=== PATIENT | male | born 1985 | race Caucasian/White ===

== ENCOUNTER 2019-06-26 08:46 | Emergency (ER) | payer SELFPAY ==
[2019-06-26 08:47] VITALS: BP 151/97; PULSE 90; RESP 18; TEMP 36.6; O2SAT 100; BMI 19.2
--- NOTE | 2019-06-26 08:56 | CT_ITS ---
STUDY: CT ABDOMEN AND PELVIS WITH CONTRAST REASON FOR EXAM: Male, 33 years old. LT MID ABD PAIN, DIARRHEA AND VOMITING, PREV HERNIA REPAIR WITH MESH RADIATION DOSAGE (If Supplied By Facility): CTDIvol = ( 9.94 ) mGy, DLP = ( 351.71 ) mGycm TECHNIQUE: Transaxial images were obtained from the dome of the diaphragm to the symphysis pubis without oral contrast. IV 100mL Isovue-300 was administered. Sagittal and coronal images were reconstructed. Individualized dose optimization techniques were used for this CT. COMPARISON: None. FINDINGS: The visualized lung bases are unremarkable. The visualized portions of the heart are within normal limits. Normal liver. Normal gallbladder and extrahepatic biliary system. Normal spleen. Normal pancreas. Normal bilateral adrenal glands. Normal right kidney. Normal left kidney. Normal visualized stomach. Normal small intestine. Normal colon. The appendix is visualized and appears normal. Normal abdominal aorta. Normal inferior vena cava. Normal retroperitoneum. Normal urinary bladder. Normal abdominal wall. Normal osseous structures. CT/Abdomen/Pelvis W IV Cont ONLY IMPRESSION: Normal enhanced CT of the abdomen and pelvis. Electronically Signed: Ruben Nunes, at 10:17 EDT , Service support ,
--- NOTE | 2019-06-26 09:01 | ED.VIS.GEN ---
History of Present Illness Chief Complaint: Nausea/Vomiting Informant: Patient Onset: Days Context: Gradual Onset Timing: Continuous Current Severity: Moderate Maximum Severity: Moderate Narrative: The patient is a 33-year-old male only medical history significant for hypertension and prior hernia repair in 2011 that presents to the emergency department nausea, and diarrhea. The patient states his symptoms began about 3 days ago. He states he has been unable to keep any fluids down since yesterday. He states anything that he drinks he will either vomit, or have immediate diarrhea. He states initially, he had some red blood in his diarrhea but that is since resolved. He does not think he is had fever but he does admit to some chills. He has no history of Crohn's disease or ulcerative colitis. He does travel for work, but cannot recall any specific sick contacts. Prior similar symptoms: No Recent Illness/Hospitalization: No Past Medical History - Allergies and Home Meds Allergies/Adverse Reactions: Allergies amoxicillin Allergy (Verified 06/26/19 08:50) Rash Primary Care Physician: Care Physician,No Primary [Primary Care Provider] - Prior records reviewed: Yes Past Medical History: - - Hypertension Surgical History: herniorrhaphy Lives: With Family Alcohol: None Drugs: None Review of Systems General: Reports: Chills. Denies: Fever, Sweats Eyes: Denies: Visual changes - bilaterally, Diplopia ENT: Denies: Rhinorrhea, Sore throat Cardiovascular: Denies: Chest pain, Palpitations Respiratory: Denies: Dyspnea, Cough, Dyspnea on exertion Gastrointestinal: Reports: Abdominal pain, Nausea, Vomiting, Diarrhea. Denies: Melena, Hematochezia Genitourinary: Denies: Dysuria, Hematuria, Frequency Musculoskeletal: Denies: Back pain, Extremity Pain Skin: Denies: Rash, Wounds Neurological: Denies: Headache, Weakness, Numbness Physical Exam Vital Signs/Narrative: Vital Signs Temp Pulse Resp BP Pulse Ox 06/26/19 08:47 98 F 90 18 151/97 H 100 Inital Vital Signs reviewed: Yes General: Well nourished, Well developed, No Acute Distress Head: Normocephalic, Atraumatic Eyes: Perrl, EOMI ENT: Moist mucous membranes, No rhinorrhea Neck: Supple, Nontender Cardiovascular: Regular rate, Regular rhythm, No murmurs Respiratory: No distress, CTA bilaterally, Chest nontender Abdomen: Soft, Nondistended, Normal bowel sounds, Tender. Negative for: Guarding, Rebound tenderness Back: Nontender, Normal Inspection Extremities: Nontender, No edema Skin: Normal color, No rash Neurological: Alert, Oriented x3, Cranial nerves II-XII grossly intact, Normal Strength, Normal Sensation Psychological: Normal affect, Normal Mood Diagnostic/Tx/Re-eval Clinical Impression(s) from Imaging Studies Abdomen/Pelvis CT 06/26/19 08:56 IMPRESSION: Normal enhanced CT of the abdomen and pelvis. Electronically Signed: Ruben Nunes, at 10:17 EDT , Service support , Abnormal Lab Results 06/26/19 06/26/19 09:15 09:15 WBC 10.1 RBC 5.03 Hgb 16.0 Hct 47.0 MCV 93.4 MCH 31.8 MCHC 34.0 RDW Std Deviation 42.0 RDW Coeff of Roderick 12.2 Plt Count 215 MPV 10.3 Immature Gran % (Auto) 0.300 Neut % (Auto) 79.5 H Lymph % (Auto) 13.4 L [place] % (Auto) 6.0 Eos % (Auto) 0.5 Baso % (Auto) 0.3 Absolute Neuts (auto) 8.0 H Absolute Lymphs (auto) 1.35 Nucleated RBC % 0 Sodium 139 Potassium 3.7 Chloride 106 Carbon Dioxide 27.0 Anion Gap 6 BUN 13 Creatinine 1.08 Estim Creat Clear Calc 94.50 Est GFR (MDRD) Af Amer 102 Est GFR (MDRD) Non-Af 84 BUN/Creatinine Ratio 12.0 Glucose 114 H Calcium 9.2 Total Bilirubin 0.50 AST 15 ALT 23 Alkaline Phosphatase 61 Total Protein 7.9 Albumin 4.3 Globulin 3.6 Albumin/Globulin Ratio 1.2 - Medical Decision Making Patient presents with abdominal cramping, nausea, vomiting, diarrhea. He was tender in his left upper and lower quadrant. Screening labs obtained were unremarkable. Noncontrast CT shows no evidence of colitis, obstruction, or other dangerous process. Patient is resting comfortably with improvement of his nausea. At this point, I do feel symptoms are likely viral. He has a repeat nontender abdomen. He will be treated symptomatically with Bentyl and Zofran. He was counseled on concerning symptoms and reasons to return. He will be discharged home. Impression 1. Gastroenteritis ED Disposition - Plan for ED Patient: Instructions: ED Food Poison Or Gastroenteritis Prescriptions: Dicyclomine HCl [Bentyl] 20 mg PO TIDAC #20 cap Prescription Printed Ondansetron [Zofran Odt] 4 mg PO Q8H PRN PRN #10 tab PRN Reason: Nausea Prescription Printed Referrals: Care Physician,No Primary [Primary Care Provider] -
[2019-06-26] MEDS: 0.9% Normal Saline 1,000 ML 1000 ML IV (09:19)
[2019-06-26] MEDS: Ondansetron 4 MG/2 ML Vial IV (09:20)
[2019-06-26 09:25] LABS: Absolute Lymphocyte Count 1.35 X10^3/uL (0.83-4.51); Basophil# 0.03 X10^3/uL; Basophil% 0.3 % (0-1); Eosinophil# 0.05 X10^3/uL; Eosinophils% 0.5 % (0-5); Lymphocyte # 1.35 X10^3/ul (4.0); Lymphocyte % 13.4 % (19-41); Mean Corpuscular Hgb 31.8 pg (27.0-32.0); Mean Corpuscular Volume 93.4 fL (80-94); Mean Platelet Vol. 10.3 fl (6.2-12.0); Monocyte# 0.61 X10^3/uL; NRBC Flagged by Analyzer 0 % (0-5); Neutrophil # 8.02 X10^3/uL (2.7-7.7); Neutrophil % 79.5 % (47-70); Platelet Count 215 K/mm3 (150-450); RBC Distribution Width CV 12.2 % (11.6-14.6); Red Blood Count 5.03 M/mm3 (4.6-6.2); White Blood Count 10.1 K/mm3 (4.4-11.0)
[2019-06-26 09:39] LABS: ALB/GLOB Ratio 1.2 RATIO (0.9-2.4); AST(SGOT) 15 U/L (15-37); Alanine Aminotransfer ALT/SGPT 23 U/L (16-61); Albumin, Serum 4.3 g/dL (3.2-5.0); Alkaline Phosphatase 61 U/L (45-117); Anion Gap 6 (5-15); BUN 13 mg/dL (7-18); Calcium,Total 9.2 mg/dL (8.5-10.1); Chloride 106 mmol/L (98-107); Creatinine, Serum 1.08 mg/dL (0.70-1.30); EST Glomerular Filtration Rate 84 mL/min (>60); Est Glom Filt Rate - Afr Amer 102 mL/min (>60); Globulin 3.6 g/dL (2.2-4.2); Glucose 114 mg/dL (74-106); Potassium 3.7 mmol/L (3.5-5.1); Protein, Total 7.9 g/dL (6.4-8.2); Sodium Level 139 mmol/L (136-145)
[2019-06-26 10:22] VITALS: BP 129/83; PULSE 74; RESP 17; O2SAT 97
[2019-06-26 10:25] VITALS: BP 129/83; PULSE 74; RESP 17; TEMP 36.8; O2SAT 97
[2019-06-26 10:33] VITALS: BP 138/77; PULSE 62; RESP 15; O2SAT 99
== END 2019-06-26 10:33 | disposition home or self-care (01) ==
PROVIDERS: Emergency Provider Emergency Medicine
DX: K52.9 Noninfective gastroenteritis and colitis, unspecified (principal); I10 Essential (primary) hypertension; Z88.0 Allergy status to penicillin
CPT/HCPCS: 74177; 80053; 85025; 99282; Q9967; J2405

== ENCOUNTER 2020-11-19 22:37 | Emergency (ER) | payer SELFPAY ==
[2020-11-19 22:38] VITALS: BP 124/100; PULSE 76; RESP 16; TEMP 36.6; O2SAT 100; BMI 20.7
--- NOTE | 2020-11-19 23:43 | ED.VIS.GI ---
HPI HPI - GI History of Present Illness Chief Complaint: Abd Pain Detail of Chief Complaint: Abdominal pain and concern for hernia. Informant: patient Narrative Narrative: Patient presents to the emergency department with abdominal pain. Patient states that he had a hernia repair in 2011 on the right side. Patient states that he has had swelling to his right testicle for about 2 months but worse over the last couple of days. Patient also has an umbilical swelling that he states he pushed back in has been causing him some pain. Patient has had nausea and vomited 3 times today. Patient also describe some dark stools today. He denies fever. He denies bright red blood in his stool. Prior similar symptoms: No PFSH PFSH Medical History no medical history Home Medications ondansetron 4 mg PO Q8H PRN PRN #10 tab 11/20/20 [Rx Last Taken Unknown] Allergy/AdvReac Type Severity Reaction Status Date / Time amoxicillin Allergy Rash Verified 11/19/20 22:37 Social History Smoking Status: Never smoker ROS ROS ED Constitutional Constitutional ED: Reports systems reviewed and no addt'l complaints, except as documented; Denies body ache(s), change in weight or chills Eyes Eyes: Denies acute decrease in peripheral vision, change in vision, double vision or loss of vision ENT ENT ED: Reports none; Denies ear pain, lip swelling, loss taste/smell, neck pain, otalgia or sore throat Cardiovascular Cardiovascular: Reports none; Denies abdominal pain, chest pain with activity, leg edema, lightheadedness, palpitations, rapid heart rate or syncope Respiratory/Chest Respiratory/Chest: Reports none; Denies change in mental status, dry cough, dyspnea, hemoptysis, shortness of breath at rest or shortness of breath with exertion Gastrointestinal Gastrointestinal: Reports none, abdominal pain, nausea and vomiting; Denies change in stool character, diarrhea, hematemesis, hematochezia, melena or rectal bleeding Genitourinary Genitourinary ED: Reports none; Denies abdominal discomfort, anuria, dysuria, genital pain or polyuria Musculoskeletal Musculoskeletal: Reports none; Denies arthralgias, back pain, difficulty walking, extremity pain, muscle weakness or myalgias Integumentary Reports none; Denies abscess or rash Neurologic Neurologic: Reports none; Denies abnormal gait, confusion, focal weakness, frequent falls, headache(s), loss of vision, numbness, paresthesias, radicular pain, vertigo or weakness Psychiatric Psychiatric: Reports systems reviewed and no addt'l complaints, except as documented and none; Denies behavioral changes, confusion, difficulty concentrating, hallucinations, suicidal ideation, tactile hallucinations or visual hallucinations Endocrine Endocrinology: Denies none, cold intolerance, excessive sweating, fatigue or heat intolerance Hematologic/Lymphatic Hematologic/Lymphatic: Reports none; Denies anemia, easy bleeding or easy bruising Allergic/Immunologic Allergic/Immunologic ED: Denies as per HPI, none, lip swelling, mouth swelling, throat swelling, tongue swelling or hives EXAM Physical Exam Const Vital Signs: 11/19/20 22:38 Temperature 97.9 F Temperature Source Temporal Pulse Rate 76 Respiratory Rate 16 Blood Pressure 124/100 H Blood Pressure Mean 108 Pulse Ox 100 Oxygen Delivery Method Room Air Positive well nourished and well developed General Appearance ED: well developed and NAD HEENT Reports TM's clear and moist mucous membranes normocephalic and atraumatic; Negative for trauma or tenderness Tympanic Membrane ED: Yes TM's clear Eyes PERRL and EOMs intact bilaterally General Eye ED: Negative for pale conjunctiva or scleral icterus Neck no lymphadenopathy, supple and no JVD General: Negative for tenderness Chest Wall inspection of chest normal and palpation of chest normal Chest: Negative for tenderness Resp normal respiratory effort and clear to auscultation bilaterally Effort and Inspection: Negative for respiratory distress or pain with movement Auscultation: Negative for rhonchi, wheezes or diminished lung sounds Cardio regular rate, regular rhythm, S1 normal heart sound, S2 normal heart sound and no murmurs Peripheral Pulses: pulses 2+ throughout GI normal to inspection, nondistended, normoactive bowel sounds, soft to palpation and non-distended GI Narrative: Patient has some tenderness periumbilically with no obvious hernia at this time noted. There is no rebound, rigidity, or peritoneal signs. Narrative: Patient is a circumcised male. Right side of the scrotum is significantly enlarged with suspected hernia within the scrotum. Difficult to palpate the testicle itself. Back/Spine no CVA tenderness and no thoracic nor lumbar tenderness Extremity normal to inspection General Extremety ED: Negative for edema General Extremity: Negative for edema Neuro oriented x3, CN's II-XII intact bilaterally, no sensory deficits noted and gait normal Sensorium / Orientation: awake, alert, oriented to person, oriented to place and oriented to time Motor Exam: strength 5/5 throughout and strength abnormal Psych mental status grossly normal Skin no rashes or lesions noted and no wounds MDM MDM MDM Narrative Medical decision making narrative: Results discussed with patient. On CT he is noted to have a large right-sided hydrocele. No significant hernias noted and no obstructive bowel pattern noted. Patient will be referred to urology for follow-up. Lab Data Attestation: I reviewed the patient's lab results. Labs: Laboratory Results - last 24 hr 11/19/20 11/19/20 11/19/20 23:55 23:55 23:55 WBC 6.4 RBC 4.86 Hgb 15.6 Hct 46.4 MCV 95.5 H MCH 32.1 H MCHC 33.6 RDW Std Deviation 43.8 RDW Coeff of Roderick 12.4 Plt Count 240 MPV 10.2 Immature Gran % (Auto) 0.300 Neut % (Auto) 48.3 Lymph % (Auto) 42.1 H [place] % (Auto) 7.2 Eos % (Auto) 1.6 Baso % (Auto) 0.5 Absolute Neuts (auto) 3.1 Absolute Lymphs (auto) 2.71 Nucleated RBC % 0 Sodium 141 Potassium 4.2 Chloride 106 Carbon Dioxide 29.0 Anion Gap 6 BUN 13 Creatinine 0.97 Estim Creat Clear Calc 110.84 Est GFR (MDRD) Af Amer 113 Est GFR (MDRD) Non-Af 94 BUN/Creatinine Ratio 13.3 Glucose 93 Lactic Acid 1.1 Calcium 8.9 Radiography Diagnostic Testing: Clinical Impression(s) from Imaging Studies Abdomen/Pelvis CT 11/20/20 23:43 IMPRESSION: Very large right-sided and trace left-sided hydronephrosis. No other acute finding in the abdomen and pelvis. Electronically Signed: Osmany Ashby MD at 1:56 EDT Tel , Service support , Discharge Plan Triage Chief Complaint: Abd Pain ED Provider: Zeny Judd Dx/Rx/DC Orders Clinical Impression: Acute hydrocele Instructions: ED Hydrocele, Type Not Specified, ED Abdominal Pain Unkn Cause Male... Prescriptions: New ondansetron [ondansetron] 4 MG tablet 4 mg PO Q8H PRN PRN (Reason: Nausea) Qty: 10 RF: 0 Primary Care Provider: Care Physician,No Primary Referrals: Roque Masters MD [STAFF PHYSICIAN] - 3-5 Days Care Physician,No Primary [Primary Care Provider] - Disposition Disposition: Home, Self Care
[2020-11-20] MEDS: Ondansetron 4 MG/2 ML Vial IV (00:03)
[2020-11-20] MEDS: 0.9% Normal Saline 1,000 ML 125 ML IV (00:03)
[2020-11-20 00:04] LABS: Absolute Lymphocyte Count 2.71 X10^3/uL (0.83-4.51); Absolute Neutrophil Count 3.1 X10^3/uL (2.0-7.7); Basophil# 0.03 X10^3/uL; Basophil% 0.5 % (0-1); Eosinophils% 1.6 % (0-5); Hematocrit 46.4 % (40-54); Hemoglobin 15.6 g/dL (13.0-16.5); Lymphocyte # 2.71 X10^3/ul (0.83-4.51); Lymphocyte % 42.1 % (19-41); Mean Corp Hgb Conc 33.6 g/dL (32-36); Mean Corpuscular Hgb 32.1 pg (27.0-32.0); Mean Corpuscular Volume 95.5 fL (80-94); Mean Platelet Vol. 10.2 fl (6.2-12.0); Monocyte# 0.46 X10^3/uL; Monocyte% 7.2 % (0-10); NRBC Flagged by Analyzer 0 % (0-5); Neutrophil # 3.11 X10^3/uL (2.7-7.7); Neutrophil % 48.3 % (47-70); Platelet Count 240 K/mm3 (150-450); RBC Distribution Width CV 12.4 % (11.6-14.6); RBC Distribution Width SD 43.8 fl (35.1-43.9); Red Blood Count 4.86 M/mm3 (4.6-6.2); White Blood Count 6.4 K/mm3 (4.4-11.0)
[2020-11-20 00:27] LABS: Anion Gap 6 (5-15); BUN 13 mg/dL (7-18); BUN/Creat Ratio 13.3 RATIO (10-20); Calcium,Total 8.9 mg/dL (8.5-10.1); Chloride 106 mmol/L (98-107); Creatinine, Serum 0.97 mg/dL (0.70-1.30); EST Glomerular Filtration Rate 94 mL/min (>60); Est Glom Filt Rate - Afr Amer 113 mL/min (>60); Estimated Creatinine Clearance 110.84 ml/min; Glucose 93 mg/dL (74-106); Potassium 4.2 mmol/L (3.5-5.1); Sodium Level 141 mmol/L (136-145)
[2020-11-20 00:32] LABS: Lactic Acid 1.1 mmol/L (0.4-1.9)
[2020-11-20 02:09] VITALS: BP 132/88; PULSE 89; RESP 18; O2SAT 100
--- NOTE | 2020-11-20 23:43 | CT_ITS ---
STUDY: CT ABDOMEN AND PELVIS WITH CONTRAST REASON FOR EXAM: Male, 35 years old. abdominal pain -- IV PO Contrast RADIATION DOSAGE (If Supplied By Facility): CTDIvol = ( 8.22 ) mGy, DLP = ( 536.30 ) mGycm TECHNIQUE: Transaxial images were obtained from the dome of the diaphragm to the symphysis pubis without oral contrast. Oral and amp; IV Gastrografin and amp; 80mL Isovue-370 was administered. Sagittal and coronal images were reconstructed. Individualized dose optimization techniques were used for this CT. COMPARISON: 06/26/2019 FINDINGS: The study is somewhat degraded by the patient''s motion. Minimal bibasilar dependent atelectasis. Grossly unremarkable liver, spleen, pancreas, adrenals, and bilateral kidneys. No definite cholelithiasis. No CT evidence of acute appendicitis. Bowel loops nonobstructed. No free air or free fluid. No adenopathy. Intact abdominal aorta and its major branches. Sections through the pelvis demonstrate a normal sized prostate. Urinary bladder grossly unremarkable. Very large right-sided and trace left-sided hydroceles. Minimal dextroscoliosis of the lumbar spine. CT/Abdomen/Pelvis WITH Contrast IMPRESSION: Very large right-sided and trace left-sided hydronephrosis. No other acute finding in the abdomen and pelvis. Electronically Signed: Osmany Ashby MD at 1:56 EDT Tel , Service support ,
== END 2020-11-20 02:10 | disposition home or self-care (01) ==
PROVIDERS: Emergency Provider Emergency Medicine
DX: N43.3 Hydrocele, unspecified (principal); N13.30 Unspecified hydronephrosis
CPT/HCPCS: 74177; 80048; 83605; 85025; 96361; 96374; 99283; J7030; Q9967; A4216; J2405

== ENCOUNTER → 2021-01-23 13:28 | Outpatient (CLI) | payer BC, SELFPAY | PROVIDERS: Referring Provider Urology; Visit Provider Urology | DX: Z03.818 Encounter for observation for suspected exposure to other biological agents ruled out (principal) | CPT/HCPCS: 87635; C9803; U0005; U0003 ==

== ENCOUNTER 2024-02-21 16:48 | Emergency (ER) | payer OTHER, SELFPAY ==
[2024-02-21 16:50] VITALS: BP 145/113; PULSE 91; RESP 18; TEMP 36.2; O2SAT 100
[2024-02-21 17:29] LABS: Absolute Neutrophil Count 3.7 X10^3/uL (2.0-7.7); Basophil# 0.03 X10^3/uL; Basophil% 0.4 % (0-1); Eosinophil# 0.18 X10^3/uL; Eosinophils% 2.7 % (0-5); Hematocrit 47.1 % (40-54); Hemoglobin 16.1 g/dL (13.0-16.5); Mean Corp Hgb Conc 34.2 g/dL (32-36); Mean Corpuscular Hgb 32.4 pg (27.0-32.0); Mean Corpuscular Volume 94.8 fL (80-94); Mean Platelet Vol. 10.2 fl (6.2-12.0); Monocyte# 0.53 X10^3/uL; Monocyte% 7.9 % (0-10); NRBC Flagged by Analyzer 0 % (0-5); Neutrophil # 3.71 X10^3/uL (2.7-7.7); Neutrophil % 55.7 % (47-70); Platelet Count 269 K/mm3 (150-450); RBC Distribution Width CV 12.7 % (11.6-14.6); RBC Distribution Width SD 43.8 fl (35.1-43.9); Red Blood Count 4.97 M/mm3 (4.6-6.2); White Blood Count 6.7 K/mm3 (4.4-11.0)
[2024-02-21 17:38] LABS: Anion Gap 5 (5-15); BUN 12 mg/dL (7-18); BUN/Creat Ratio 11.9 RATIO (10-20); Calcium,Total 9.7 mg/dL (8.5-10.1); Chloride 109 mmol/L (98-107); Creatinine, Serum 1.01 mg/dL (0.70-1.30); EST Glomerular Filtration Rate 88 mL/min (>60); Est Glom Filt Rate - Afr Amer 107 mL/min (>60); Estimated Creatinine Clearance 100.22 ml/min; Glucose 125 mg/dL (74-106); Potassium 3.6 mmol/L (3.5-5.1); Sodium Level 140 mmol/L (136-145)
[2024-02-21 17:43] LABS: Partial Thromboplast Time 28.2 Seconds (24.1-36.2); Prothrombin Time (Protime)PT. 13.1 SECONDS (11.7-14.9)
--- NOTE | 2024-02-21 18:32 | EX.ED.VIS.HA ---
HPI History of Present Illness Chief Complaint: Headache Informant: patient Onset/Context/Timing Onset: Days (5) Context: Sudden Timing: Continuous Quality -Headache: Positive for Sharp Location: Left head Worsened by: Nothing Relieved by: Nothing Associated Symptoms/Injury Associated Symptoms: Positive for Nausea, Vomiting, Numbness, Blurred Vision and Photophobia; Negative for Fever, Sore Throat or Sinus Pressure Narrative Narrative: Patient presents with headache that has been getting worse over the past 5 days. Patient states it is constant. Patient states it is sharp. Patient states it is over the left side of his head. Patient admits to some nausea and vomiting. His patient admits to some blurry vision. Patient admits to some decreased vision of his left eye. Patient denies any weakness. Patient states he had a stroke several months ago and has persistent left-sided weakness. Patient denies any new weakness. [facility] Medical History (Updated 02/21/24 @ 21:[address] Herve Marshall DO) Stroke Home Medications ?Medication ?Instructions ?Recorded ?Last Taken ?Type ondansetron 4 mg disintegrating 4 mg PO Q8H PRN PRN Nausea #10 tabs 11/20/20 Unknown Rx tablet Allergy/AdvReac Type Severity Reaction Status Date / Time amoxicillin Allergy Rash Verified 02/21/24 16:50 Surgical History (Updated 02/21/24 @ 21:[address] Herve Marshall DO) History of hydrocelectomy Hx of inguinal herniorrhaphy History of tonsillectomy and adenoidectomy Social History (Updated 02/21/24 @ 21:[address] Herve Marshall DO) Smoking Status: Current some day smoker tobacco type: smokeless tobacco substance use type: marijuana ROS ROS ED Constitutional Constitutional ED: Denies chills or fever(s) Eyes Eyes: Reports blurry vision; Denies change in vision ENT ENT ED: Denies rhinorrhea or sore throat Cardiovascular Cardiovascular: Denies chest pain or palpitations Respiratory/Chest Respiratory/Chest: Denies cough or dyspnea Gastrointestinal Gastrointestinal: Reports nausea and vomiting Genitourinary Genitourinary ED: Denies dysuria or hematuria Musculoskeletal Musculoskeletal: Reports neck pain; Denies back pain Integumentary Denies abscess or rash Neurologic Neurologic: Reports headache(s) Allergic/Immunologic Allergic/Immunologic ED: Denies mouth swelling or urticaria EXAM Physical Exam Const Vital Signs: 02/21/24 16:50 Temperature 97.2 F L Temperature Source Temporal Pulse Rate 91 Respiratory Rate 18 Blood Pressure 145/113 H Blood Pressure Mean 123 Pulse Ox 100 Oxygen Delivery Method Room Air Positive well nourished and well developed General Appearance ED: well developed and NAD HEENT Reports normocephalic and moist mucous membranes atraumatic Neck supple, no meningeal signs and no JVD Resp normal respiratory effort and clear to auscultation bilaterally Cardio regular rate and regular rhythm GI non-tender and non-distended Palpation: soft Extremity General Extremety ED: Negative for edema or tenderness General Extremity: Negative for edema Neuro oriented x3 Neuro Narrative: Strength is 4/5 in the left upper and lower extremity. There is also some mild drooping of his left eyelid. Patient states this has been present since his stroke 7 months ago. There are no sensory deficits noted. Kamar Coma Scale: document GCS findings Spontaneous Obeys Commands Oriented 15 Sensorium / Orientation: awake and alert Speech: speech normal Psych mental status grossly normal MDM MDM MDM Narrative Medical decision making narrative: Differential diagnosis includes intracranial bleeding, stroke, migraine headache, tension headache, and neuralgia. CT scan of the brain will be obtained to assess for intracranial bleeding and stroke. CBC will be obtained to assess for leukocytosis and anemia. Basic metabolic profile will be obtained to assess for electrolyte abnormality and renal function. PT with INR and PTT will be obtained to assess for coagulopathy. Lab Data Attestation: I reviewed the patient's lab results. Lab results narrative: CBC was reviewed and was within normal limits. Basic metabolic profile was reviewed and was within normal limits. PT with INR and PTT were reviewed and were within normal limits. Labs: Laboratory Results - last 24 hr 02/21/24 17:18 WBC 6.7 RBC 4.97 Hgb 16.1 Hct 47.1 MCV 94.8 H MCH 32.4 H MCHC 34.2 RDW Std Deviation 43.8 RDW Coeff of Roderick 12.7 Plt Count 269 MPV 10.2 Immature Gran % (Auto) 0.300 Neut % (Auto) 55.7 Lymph % (Auto) 33.0 [place] % (Auto) 7.9 Eos % (Auto) 2.7 Baso % (Auto) 0.4 Absolute Neuts (auto) 3.7 Absolute Lymphs (auto) 2.20 Nucleated RBC % 0 PT 13.1 INR 1.0 APTT 28.2 Sodium 140 Potassium 3.6 Chloride 109 H Carbon Dioxide 26.0 Anion Gap 5 BUN 12 Creatinine 1.01 Estim Creat Clear Calc 100.22 Est GFR (MDRD) Af Amer 107 Est GFR (MDRD) Non-Af 88 BUN/Creatinine Ratio 11.9 Glucose 125 H Calcium 9.7 Radiography Diagnostic Testing: CT scan of the brain was obtained. There is no acute intracranial abnormality. This was interpreted by the radiologist and was also independently reviewed by myself. Treatment and Re-Evaluation Narrative: Patient was given IV fluids, Reglan, and Benadryl. Patient had minimal relief with this. Patient was given a dose of Toradol, dexamethasone, and Imitrex. Patient was feeling better after this. Patient preferred to go home. Patient was instructed to drink plenty of fluids. Patient was instructed to follow-up with his primary care physician in 5 to 7 days. Patient understood and was agreeable with the plan. All questions were answered. Discharge Plan Triage Chief Complaint: Headache Other Complaint: Neuro S/Sx ED Provider: Herve Marshall Dx/Rx/DC Orders Clinical Impression: Headache Instructions: ED Headache Unspecified Prescriptions: No Action ondansetron [ondansetron] 4 MG tablet 4 mg PO Q8H PRN PRN (Reason: Nausea) Qty: 10 0RF Stand Alone Forms: ED Work / School Excuse Primary Care Provider: Everton Lei Referrals: Everton Lei PA [Primary Care Provider] - Keep Karissa appointment Print Language: [place]an Disposition Disposition: Home, Self Care
[2024-02-21] MEDS: 0.9% Normal Saline (1000mL) 1,000 ML 999 ML IV (18:41)
[2024-02-21] MEDS: Metoclopramide 10 MG/2 ML Vial IV (18:41)
[2024-02-21] MEDS: DiphenhydrAMINE 50 MG/ML Syringe 25 MG IV (18:41)
[2024-02-21 18:46] VITALS: BP 143/98; PULSE 56; RESP 15; O2SAT 99
--- NOTE | 2024-02-21 18:49 | CT_ITS ---
STUDY: CT BRAIN WITHOUT CONTRAST REASON FOR EXAM: Male, 38 years old. Pain RADIATION DOSAGE (If Supplied By Facility): CTDIvol = ( 44.99 ) mGy, DLP = ( 880.47 ) mGycm TECHNIQUE: Transaxial CT imaging of the brain was performed without administration of intravenous contrast material. Individualized dose optimization techniques were used for this CT. COMPARISON: No relevant priors. FINDINGS: Normal soft tissue structures. Normal calvarium. Normal size ventricles and extra-axial spaces for the patient''s age. Normal white matter tracts of the cerebral hemispheres. Normal basal ganglia and thalami. Normal brainstem. Normal cerebellum. There is no intracranial hemorrhage. There are no findings of an acute ischemic infarction. Mild polypoid mucosal thickening of the maxillary sinuses laterally. CT/Brain/Head without Contrast IMPRESSION: Normal unenhanced CT scan of the brain. 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
[2024-02-21 20:00] VITALS: BP 122/82; PULSE 55; RESP 14; O2SAT 99
[2024-02-21] MEDS: dexAMETHasone 4 MG/ML Vial IV (20:30)
[2024-02-21] MEDS: Ketorolac 30 MG/ML Syringe IV (20:30)
[2024-02-21] MEDS: SUMAtriptan 6 MG/0.5 ML Vial SC (20:30)
[2024-02-21 21:56] VITALS: BP 112/69; PULSE 51; RESP 18; O2SAT 98
[2024-02-21 21:57] VITALS: BP 112/69; PULSE 51; RESP 18; TEMP 36.7; O2SAT 98
== END 2024-02-21 22:05 | disposition home or self-care (01) ==
PROVIDERS: Emergency Provider Emergency Medicine; PCP Physician Assistant; Visit Provider Emergency Medicine
DX: R51.9 Headache, unspecified (principal); I69.354 Hemiplegia and hemiparesis following cerebral infarction affecting left non-dominant side; R11.2 Nausea with vomiting, unspecified; F17.220 Nicotine dependence, chewing tobacco, uncomplicated; I69.392 Facial weakness following cerebral infarction
CPT/HCPCS: 70450; 80048; 85025; 85610; 85730; 96361; 96372; 96374; 96375; 99285; A4216; J3030